=== PATIENT | male | born 1935 | race Caucasian/White ===

== ENCOUNTER 2017-01-16 17:24 | Inpatient (IN) ==
[2017-01-16 18:44] LABS: Basophils % 0.6 % (0.0-0.8); Eosinophils # 0.2 10*3/uL (0.0-0.87); Eosinophils % 3.7 % (0.00-10.9); Hematocrit 45.5 VOL% (42.0-52.0); Hemoglobin 16.4 GM/DL (14.0-18.0); Immature Granulocytes % 0.2 %; Immature Granulocytes Absolute 0.01 #; Lymphocytes % 17.7 % (21.2-54.2); Mean Corpuscular Hemoglobin 35 PG (27-34); Mean Platelet Volume 12.3 FL (9.6-12.0); Monocytes # 0.7 10*3/uL (0.11-0.8); Monocytes % 12.4 % (1.7-12.7); Neutrophils # 3.6 10*3/uL (1.4-7.4); Neutrophils % 65.4 % (38.7-73.9); Platelet Count 202 T/CUMM (130-400); Red Blood Count 4.69 MC/CUMM (3.8-5.5); Red Cell Distribution Width 14.3 % (9.3-17.3); White Blood Count 5.4 T/CUMM (4-12)
[2017-01-16 18:50] LABS: INR 1.8; PT Patient Result 18.9 SECS
[2017-01-16 19:04] LABS: Alanine Aminotransferase 30 U/L (16-61); Albumin 3.8 G/DL (3.4-5.0); Alkaline Phosphatase 116 U/L (45-117); Aspartate Amino Transferase 20 U/L (0-37); Bilirubin,Total < 0.39 MG/DL (0.2-1.0); Blood Urea Nitrogen 21 MG/DL (7-18); Glucose 90 MG/DL (74-106); Osmolality,Calculated 277.7 MOS/KG (273-304); Potassium 4.4 MMOL/L (3.5-5.1); Sodium 138 MMOL/L (136-145); Total Protein 7.3 G/DL (6.4-8.3); Troponin I Only < 0.015 NG/ML (0.00-0.045)
[2017-01-16 19:25] LABS: Apearance,Urine CLEAR (Clear); Bilirubin,Urine Negative (Negative); Blood, Urine Negative (Negative); Glucose,Urine (UA) Negative (Negative); Ketones,Urine Negative (Negative); Mucus,Urine Occasional /LPF (Occasional); Nitrite,Urine Negative (Negative); Protein,Urine Negative; RBC,Urine 5 /HPF (0-4); Urine Color Yellow (Yellow); Urine Specific Gravity 1.014 (1.001-1.035); Urine Urobilinogen < 2.0 EU/DL (0.2-1.0); WBC,Urine 1 /HPF (0-6)
[2017-01-16 19:32] LABS: Barbiturates Screen,Urine Negative (Negative); Benzodiazepines Screen,Urine Negative (Negative); Cannabinoid Screen,Urine Negative (Negative); Opiate Screen,Urine Positive (Negative); Phencyclidine Screen,Urine Negative (Negative)
[2017-01-16] MEDS ORDERED: ONDANSETRON 4 MG/2 ML VIAL IV PRN (21:15)
[2017-01-16] MEDS ORDERED: ACETAMINOPHEN 325 MG TABLET PO PRN (21:15)
[2017-01-16] MEDS ORDERED: DOCUSATE SODIUM 100 MG CAPSULE PO PRN (21:15)
[2017-01-16] MEDS ORDERED: MAGNESIUM SULF RIDER 2 GM in PREMIX 1 EACH IV PRN (21:15)
[2017-01-16] MEDS ORDERED: MAGNESIUM SULF RIDER 4 GM in PREMIX 1 EACH IV PRN (21:15)
[2017-01-16] MEDS ORDERED: ROSUVASTATIN 10 MG TABLET PO SCH (21:30)
[2017-01-16] MEDS ORDERED: ATROPINE 1 MG/1 ML VIAL ONE (21:38)
[2017-01-16] MEDS ORDERED: LORazepam 2 MG/1 ML VIAL ONE (21:47)
[2017-01-16] MEDS ORDERED: MIDAZOLAM 2 MG/2 ML VIAL ONE (22:29)
[2017-01-16] MEDS ORDERED: fentaNYL 100 MCG/2 ML VIAL ONE (22:29)
[2017-01-16] MEDS ORDERED: ceFAZolin 1,000 MG VIAL ONE ×3 (22:32→23:06)
[2017-01-16] MEDS ORDERED: ATROPINE 1 MG/10 ML SYRINGE IV ONE (22:33)
[2017-01-16] MEDS ORDERED: LORazepam 2 MG/1 ML VIAL IV ONE (22:33)
[2017-01-16] MEDS ORDERED: LIDOCAINE 1% 20 ML VIAL ONE (23:06)
[2017-01-16] MEDS ORDERED: TISSUE ADHESIVE 1 EACH APPLICATOR TOP ONE (23:34)
[2017-01-17] MEDS ORDERED: DEXTROSE 50% 25 GM/50 ML VIAL IV PRN (00:28)
[2017-01-17] MEDS ORDERED: GLUCAGON 1 MG VIAL IM PRN (00:28)
[2017-01-17 02:52] LABS: Apearance,Urine CLEAR (Clear); Bilirubin,Urine Negative (Negative); Blood, Urine Moderate mg/dL (Negative); Glucose,Urine (UA) Negative (Negative); Hyaline Casts,Urine 1 /LPF (0-3); Ketones,Urine Negative (Negative); Mucus,Urine Occasional /LPF (Occasional); Nitrite,Urine Negative (Negative); Protein,Urine Negative; RBC,Urine 66 /HPF (0-4); Squamous Epithelial Cell,Urine Occasional /HPF (0-10); Urine Color Yellow (Yellow); Urine Specific Gravity 1.031 (1.001-1.035); Urine Urobilinogen < 2.0 EU/DL (0.2-1.0); WBC,Urine 1 /HPF (0-6)
[2017-01-17] MEDS ORDERED: hydrALAZINE 25 MG TABLET PO PRN (02:54)
[2017-01-17] MEDS: oxyCODONE/ACETAMINOPHEN 5-325 MG TABLET PO PRN ×2 (03:06→18:01)
[2017-01-17 04:41] LABS: Basophils % 0.2 % (0.0-0.8); Eosinophils # 0.2 10*3/uL (0.0-0.87); Eosinophils % 1.9 % (0.00-10.9); Hematocrit 45.1 VOL% (42.0-52.0); Immature Granulocytes % 0.3 %; Immature Granulocytes Absolute 0.03 #; Lymphocytes # 0.8 10*3/uL (1.4-4.0); Lymphocytes % 8.1 % (21.2-54.2); Mean Corpuscular HGB Conc 35.5 GM/DL (32-36); Mean Corpuscular Hemoglobin 35 PG (27-34); Mean Corpuscular Volume 97.2 FL (87-102); Mean Platelet Volume 12.1 FL (9.6-12.0); Monocytes # 0.9 10*3/uL (0.11-0.8); Neutrophils # 7.5 10*3/uL (1.4-7.4); Neutrophils % 79.5 % (38.7-73.9); Platelet Count 214 T/CUMM (130-400); Red Blood Count 4.64 MC/CUMM (3.8-5.5); Red Cell Distribution Width 14.1 % (9.3-17.3); White Blood Count 9.4 T/CUMM (4-12)
[2017-01-17 04:54] LABS: INR 1.8
[2017-01-17 05:40] LABS: Calcium 9.1 MG/DL (8.5-10.1); Magnesium 2.4 MG/DL (1.8-2.4); Osmolality,Calculated 275.7 MOS/KG (273-304); Potassium 4.7 MMOL/L (3.5-5.1); Troponin I Only 0.071 NG/ML (0.00-0.045)
[2017-01-17] MEDS ORDERED: GABAPENTIN 100 MG CAPSULE PO SCH (09:00)
[2017-01-17] MEDS ORDERED: ASPIRIN EC 81 MG TABLET PO SCH (09:00)
[2017-01-17] MEDS ORDERED: PANTOPRAZOLE 40 MG TABLET PO SCH (09:00)
[2017-01-17] MEDS ORDERED: ALLOPURINOL 300 MG TABLET PO SCH (09:00)
[2017-01-17] MEDS ORDERED: CELECOXIB 100 MG CAPSULE PO SCH (09:00)
[2017-01-17] MEDS ORDERED: POLYETHYLENE GLYCOL POWDER 17 GM PACK PO SCH (09:00)
[2017-01-17] MEDS ORDERED: ASPIRIN CHEW 81 MG TABLET PO ONE (09:31)
[2017-01-17] MEDS: METOPROLOL SUCCINATE XL 25 MG TABLET PO SCH (09:37)
[2017-01-17] MEDS: PANTOPRAZOLE 40 MG TABLET PO SCH (09:37)
[2017-01-17] MEDS ORDERED: WARFARIN 7.5 MG TABLET PO SCH (18:00)
[2017-01-18] MEDS: oxyCODONE/ACETAMINOPHEN 5-325 MG TABLET PO PRN (04:27)
[2017-01-18 05:37] LABS: INR 1.9; PT Patient Result 19.8 SECS
[2017-01-18 05:53] LABS: Risk Ratio 4.54; VLDL CHOLESTEROL 22.2 MG/DL
[2017-01-18] MEDS ORDERED: ASPIRIN EC 81 MG TABLET PO SCH (09:00)
[2017-01-18] MEDS: METOPROLOL SUCCINATE XL 25 MG TABLET PO SCH (09:37)
[2017-01-18] MEDS: PANTOPRAZOLE 40 MG TABLET PO SCH (09:37)
[2017-01-18 15:17] VITALS: BP 142/68
[2017-01-20] MEDS ORDERED: WARFARIN 5 MG TABLET PO SCH (18:00)
== END 2017-01-18 16:00 | disposition home or self-care (01) | DRG 244 ==
LOC: N.ED 17:24 → N.EDINP 21:20 → N.CC 21:40 → N.TELES 01-17 14:57
PROVIDERS: ADMIT Internal Medicine Clinical Cardiac Electrophysiology; ATTEND Internal Medicine Clinical Cardiac Electrophysiology

== ENCOUNTER 2018-05-03 13:15 | Observation (INO) ==
[2018-05-03 13:54] LABS: Basophils % 0.5 % (0.0-0.8); Eosinophils # 0.3 10*3/uL (0.0-0.87); Eosinophils % 5.2 % (0.00-10.9); Hematocrit 45.8 VOL% (42.0-52.0); Hemoglobin 15.4 GM/DL (14.0-18.0); Immature Granulocytes % 0.2 %; Immature Granulocytes Absolute 0.01 #; Lymphocytes # 0.9 10*3/uL (1.4-4.0); Lymphocytes % 15.2 % (21.2-54.2); Mean Corpuscular HGB Conc 33.6 GM/DL (32-36); Mean Corpuscular Hemoglobin 34 PG (27-34); Mean Corpuscular Volume 100.7 FL (87-102); Mean Platelet Volume 12.1 FL (9.6-12.0); Monocytes # 0.7 10*3/uL (0.11-0.8); Monocytes % 12.8 % (1.7-12.7); Neutrophils # 3.7 10*3/uL (1.4-7.4); Neutrophils % 66.1 % (38.7-73.9); Platelet Count 176 T/CUMM (130-400); Red Blood Count 4.55 MC/CUMM (3.8-5.5); Red Cell Distribution Width 14.6 % (9.3-17.3); White Blood Count 5.6 T/CUMM (4-12)
[2018-05-03 14:06] LABS: PT Patient Result 110.4 SECS
[2018-05-03 14:07] LABS: INR 10.4
[2018-05-03 14:18] LABS: Albumin 3.8 G/DL (3.4-5.0); Bilirubin,Total 0.4 MG/DL (0.2-1.0); Calcium 9.1 MG/DL (8.5-10.1); Osmolality,Calculated 282.4 MOS/KG (273-304); Potassium 4.6 MMOL/L (3.5-5.1); Total Protein 7.3 G/DL (6.4-8.3)
[2018-05-03] MEDS ORDERED: PHYTONADIONE 5 MG/5 ML ORAL.SYR PO ONE (15:28)
[2018-05-03] MEDS ORDERED: SODIUM CHLORIDE 0.9% 1,000 ML IV SCH (16:33)
[2018-05-03] MEDS ORDERED: ACETAMINOPHEN 325 MG TABLET PO PRN (16:33)
[2018-05-03] MEDS ORDERED: ONDANSETRON 4 MG/2 ML VIAL IV PRN (16:33)
[2018-05-03] MEDS: DOCUSATE SODIUM 100 MG CAPSULE PO SCH (20:59)
[2018-05-04 05:13] LABS: Basophils % 0.5 % (0.0-0.8); Eosinophils # 0.3 10*3/uL (0.0-0.87); Eosinophils % 4.7 % (0.00-10.9); Hemoglobin 14.4 GM/DL (14.0-18.0); Immature Granulocytes % 0.2 %; Immature Granulocytes Absolute 0.01 #; Lymphocytes # 1.1 10*3/uL (1.4-4.0); Lymphocytes % 19.2 % (21.2-54.2); Mean Corpuscular HGB Conc 33.5 GM/DL (32-36); Mean Corpuscular Hemoglobin 34 PG (27-34); Mean Corpuscular Volume 101.2 FL (87-102); Mean Platelet Volume 12.7 FL (9.6-12.0); Monocytes # 0.7 10*3/uL (0.11-0.8); Monocytes % 12.9 % (1.7-12.7); Neutrophils # 3.5 10*3/uL (1.4-7.4); Neutrophils % 62.5 % (38.7-73.9); Platelet Count 163 T/CUMM (130-400); Red Blood Count 4.25 MC/CUMM (3.8-5.5); Red Cell Distribution Width 14.5 % (9.3-17.3); White Blood Count 5.5 T/CUMM (4-12)
[2018-05-04 05:30] LABS: INR 3.5
[2018-05-04 05:31] LABS: PT Patient Result 37.2 SECS
[2018-05-04 05:35] LABS: Albumin 3.3 G/DL (3.4-5.0); Bilirubin,Total 1.1 MG/DL (0.2-1.0); Osmolality,Calculated 280.4 MOS/KG (273-304); Potassium 4.2 MMOL/L (3.5-5.1); Total Protein 6.4 G/DL (6.4-8.3)
[2018-05-04] MEDS: DOCUSATE SODIUM 100 MG CAPSULE PO SCH (08:16)
[2018-05-04] MEDS ORDERED: PANTOPRAZOLE 40 MG TABLET PO SCH (09:00)
[2018-05-04 09:06] VITALS: BP 154/71
== END 2018-05-04 09:59 | disposition home or self-care (01) ==
LOC: N.EDINP 13:15 → N.ED 13:15 → N.4E 16:17
PROVIDERS: ADMIT Family Medicine; ATTEND Family Medicine

== ENCOUNTER 2018-08-15 13:59 | Inpatient (IN) ==
[2018-08-15 14:35] LABS: Basophils % 0.2 % (0.0-0.8); Eosinophils % 0.2 % (0.00-10.9); Hemoglobin 13.8 GM/DL (14.0-18.0); Immature Granulocytes % 0.5 %; Immature Granulocytes Absolute 0.06 #; Lymphocytes # 0.5 10*3/uL (1.4-4.0); Lymphocytes % 4.2 % (21.2-54.2); Mean Corpuscular HGB Conc 33.7 GM/DL (32-36); Mean Corpuscular Volume 101.2 FL (87-102); Mean Platelet Volume 11.8 FL (9.6-12.0); Monocytes % 13.6 % (1.7-12.7); Neutrophils % 81.3 % (38.7-73.9); Platelet Count 171 T/CUMM (130-400); Red Blood Count 4.05 MC/CUMM (3.8-5.5); Red Cell Distribution Width 13.9 % (9.3-17.3); White Blood Count 11.6 T/CUMM (4-12)
[2018-08-15 14:55] LABS: Band Neutrophils 1 % (0-10); Lymphocytes 2 % (20-55); Segmented Neutrophils 89 % (50-85); Total Cells Counted 100
[2018-08-15 14:56] LABS: Platelet Estimate Adequate
[2018-08-15 15:00] LABS: Bilirubin,Total 1.3 MG/DL (0.2-1.0); Osmolality,Calculated 272.1 MOS/KG (273-304); Total Protein 6.6 G/DL (6.4-8.3)
[2018-08-15] MEDS ORDERED: cefTRIAXone 1,000 MG in SODIUM CHLORIDE 0.9% 100 ML IV STA (15:05)
[2018-08-15] MEDS ORDERED: cefTRIAXone 1,000 MG in SYRINGE 1 EACH IV STA (15:09)
[2018-08-15] MEDS ORDERED: ONDANSETRON 4 MG/2 ML VIAL IV PRN (15:17)
[2018-08-15] MEDS ORDERED: ACETAMINOPHEN 325 MG TABLET PO PRN (15:17)
[2018-08-15] MEDS ORDERED: SODIUM CHLORIDE 0.9% 100 ML IV ONE (15:18)
[2018-08-15] MEDS ORDERED: cefTRIAXone 1,000 MG in SYRINGE 1 EACH IV SCH (15:30)
[2018-08-15] MEDS ORDERED: SODIUM CHLORIDE 0.45% 1,000 ML IV SCH (15:30)
[2018-08-15 16:33] LABS: INR 1.9
[2018-08-15 16:51] LABS: Apearance,Urine CLEAR (Clear); Bilirubin,Urine Negative (Negative); Blood, Urine Small mg/dL (Negative); Glucose,Urine (UA) Negative (Negative); Ketones,Urine Negative (Negative); Mucus,Urine Occasional /LPF (Occasional); Nitrite,Urine Negative (Negative); Protein,Urine 30 MG/DL; RBC,Urine 9 /HPF (0-4); Squamous Epithelial Cell,Urine Occasional /HPF (0-10); Urine Color Yellow (Yellow); Urine Specific Gravity 1.021 (1.001-1.035); WBC,Urine 4 /HPF (0-6)
[2018-08-15] MEDS: WARFARIN 5 MG TABLET PO SCH (17:34)
[2018-08-15] MEDS: traMADol 50 MG TABLET PO SCH (21:25)
[2018-08-15] MEDS: DOCUSATE SODIUM 100 MG CAPSULE PO SCH (21:25)
[2018-08-16] MEDS: ACETAMINOPHEN 325 MG TABLET PO PRN ×3 (05:08→20:20)
[2018-08-16] MEDS: SODIUM CHLORIDE 0.45% 1,000 ML IV SCH ×2 (05:14→20:21)
[2018-08-16 05:28] LABS: Basophils % 0.2 % (0.0-0.8); Eosinophils # 0.1 10*3/uL (0.0-0.87); Eosinophils % 0.6 % (0.00-10.9); Hematocrit 39.3 VOL% (42.0-52.0); Hemoglobin 13.5 GM/DL (14.0-18.0); Immature Granulocytes % 0.6 %; Immature Granulocytes Absolute 0.07 #; Lymphocytes # 0.4 10*3/uL (1.4-4.0); Lymphocytes % 3.4 % (21.2-54.2); Mean Corpuscular HGB Conc 34.4 GM/DL (32-36); Mean Corpuscular Volume 100.5 FL (87-102); Mean Platelet Volume 11.8 FL (9.6-12.0); Monocytes % 13.2 % (1.7-12.7); Platelet Count 168 T/CUMM (130-400); Red Blood Count 3.91 MC/CUMM (3.8-5.5); Red Cell Distribution Width 13.9 % (9.3-17.3); White Blood Count 12.5 T/CUMM (4-12)
[2018-08-16 05:35] LABS: INR 1.8; PT Patient Result 19.3 SECS
[2018-08-16 05:49] LABS: Band Neutrophils 1 % (0-10); Hypochromasia 1+; Lymphocytes 5 % (20-55); Platelet Estimate Adequate; Segmented Neutrophils 85 % (50-85); Total Cells Counted 100
[2018-08-16] MEDS: ALLOPURINOL 300 MG TABLET PO SCH (09:39)
[2018-08-16] MEDS: GABAPENTIN 100 MG CAPSULE PO SCH (09:39)
[2018-08-16] MEDS: PANTOPRAZOLE 40 MG TABLET PO SCH (09:39)
[2018-08-16] MEDS: METOPROLOL SUCCINATE XL 25 MG TABLET PO SCH (09:39)
[2018-08-16] MEDS: ROSUVASTATIN 10 MG TABLET PO SCH (09:39)
[2018-08-16] MEDS: ASPIRIN EC 81 MG TABLET PO SCH (09:39)
[2018-08-16] MEDS: cefTRIAXone 1,000 MG in SYRINGE 1 EACH IV SCH (09:39)
[2018-08-16] MEDS: DOCUSATE SODIUM 100 MG CAPSULE PO SCH ×2 (09:40→20:21)
[2018-08-16] MEDS: traMADol 50 MG TABLET PO SCH ×2 (09:40→20:21)
[2018-08-16] MEDS: WARFARIN 7.5 MG TABLET PO SCH (18:02)
[2018-08-17] MEDS: ACETAMINOPHEN 325 MG TABLET PO PRN ×3 (05:20→22:15)
[2018-08-17 08:14] LABS: Basophils % 0.2 % (0.0-0.8); Eosinophils # 0.1 10*3/uL (0.0-0.87); Eosinophils % 0.7 % (0.00-10.9); Hematocrit 41.7 VOL% (42.0-52.0); Hemoglobin 13.9 GM/DL (14.0-18.0); Immature Granulocytes % 0.7 %; Immature Granulocytes Absolute 0.09 #; Lymphocytes # 0.3 10*3/uL (1.4-4.0); Lymphocytes % 2.4 % (21.2-54.2); Mean Corpuscular HGB Conc 33.3 GM/DL (32-36); Mean Corpuscular Volume 100.5 FL (87-102); Mean Platelet Volume 11.1 FL (9.6-12.0); Monocytes % 8.5 % (1.7-12.7); Neutrophils % 87.5 % (38.7-73.9); Platelet Count 184 T/CUMM (130-400); Red Blood Count 4.15 MC/CUMM (3.8-5.5)
[2018-08-17 08:34] LABS: Band Neutrophils 4 % (0-10); Hypochromasia Slight; Lymphocytes 2 % (20-55); Platelet Estimate Adequate; Segmented Neutrophils 86 % (50-85); Total Cells Counted 100
[2018-08-17 08:39] LABS: Calcium 8.9 MG/DL (8.5-10.1); Osmolality,Calculated 271.2 MOS/KG (273-304)
[2018-08-17] MEDS: cefTRIAXone 1,000 MG in SYRINGE 1 EACH IV SCH (09:02)
[2018-08-17] MEDS: metroNIDAZOLE INJ 500 MG in PREMIX 1 EACH IV SCH ×2 (09:03→18:16)
[2018-08-17] MEDS: SODIUM CHLORIDE 0.45% 1,000 ML IV SCH (09:05)
[2018-08-17] MEDS: ALLOPURINOL 300 MG TABLET PO SCH (09:07)
[2018-08-17] MEDS: traMADol 50 MG TABLET PO SCH ×2 (09:07→21:21)
[2018-08-17] MEDS: OXYBUTYNIN XL 5 MG TABLET PO SCH (09:07)
[2018-08-17] MEDS: DOCUSATE SODIUM 100 MG CAPSULE PO SCH ×2 (09:07→21:21)
[2018-08-17] MEDS: ASPIRIN EC 81 MG TABLET PO SCH (09:07)
[2018-08-17] MEDS: METOPROLOL SUCCINATE XL 25 MG TABLET PO SCH (09:07)
[2018-08-17] MEDS: PANTOPRAZOLE 40 MG TABLET PO SCH (09:08)
[2018-08-17] MEDS: GABAPENTIN 100 MG CAPSULE PO SCH (09:08)
[2018-08-17] MEDS: ALBUTEROL 2.5 MG/3 ML NEB RESP TX SCH ×4 (10:42→23:34)
[2018-08-17] MEDS ORDERED: ACETAMINOPHEN 500 MG TABLET PO ONE (14:08)
[2018-08-17] MEDS: LEVOFLOXACIN INJ 500 MG in PREMIX 1 EACH IV SCH (14:14)
[2018-08-17] MEDS: WARFARIN 5 MG TABLET PO SCH (18:15)
[2018-08-18] MEDS: SODIUM CHLORIDE 0.45% 1,000 ML IV SCH ×2 (01:35→17:02)
[2018-08-18] MEDS: metroNIDAZOLE INJ 500 MG in PREMIX 1 EACH IV SCH ×3 (01:36→18:35)
[2018-08-18] MEDS: ALBUTEROL 2.5 MG/3 ML NEB RESP TX SCH ×5 (02:15→19:10)
[2018-08-18] MEDS: ACETAMINOPHEN 325 MG TABLET PO PRN ×4 (02:58→18:36)
[2018-08-18 05:41] LABS: INR 1.9; PT Patient Result 20.8 SECS
[2018-08-18] MEDS: ASPIRIN EC 81 MG TABLET PO SCH (08:32)
[2018-08-18] MEDS: ALLOPURINOL 300 MG TABLET PO SCH (08:32)
[2018-08-18] MEDS: METOPROLOL SUCCINATE XL 25 MG TABLET PO SCH (08:32)
[2018-08-18] MEDS: ROSUVASTATIN 10 MG TABLET PO SCH (08:32)
[2018-08-18] MEDS: traMADol 50 MG TABLET PO SCH ×2 (08:33→21:28)
[2018-08-18] MEDS: GABAPENTIN 100 MG CAPSULE PO SCH (08:34)
[2018-08-18] MEDS: OXYBUTYNIN XL 5 MG TABLET PO SCH (08:34)
[2018-08-18] MEDS: PANTOPRAZOLE 40 MG TABLET PO SCH (08:34)
[2018-08-18] MEDS: DOCUSATE SODIUM 100 MG CAPSULE PO SCH ×2 (08:34→21:27)
[2018-08-18] MEDS: LEVOFLOXACIN INJ 500 MG in PREMIX 1 EACH IV SCH (14:27)
[2018-08-18] MEDS: WARFARIN 5 MG TABLET PO SCH (18:37)
[2018-08-19] MEDS: ALBUTEROL 2.5 MG/3 ML NEB RESP TX SCH ×6 (00:09→21:06)
[2018-08-19] MEDS: metroNIDAZOLE INJ 500 MG in PREMIX 1 EACH IV SCH ×3 (00:57→17:13)
[2018-08-19 05:54] LABS: PT Patient Result 21.6 SECS
[2018-08-19] MEDS: ACETAMINOPHEN 325 MG TABLET PO PRN (06:12)
[2018-08-19] MEDS ORDERED: OXYBUTYNIN XL 10 MG TABLET PO SCH (09:00)
[2018-08-19] MEDS: ALLOPURINOL 300 MG TABLET PO SCH (09:11)
[2018-08-19] MEDS: GABAPENTIN 100 MG CAPSULE PO SCH (09:11)
[2018-08-19] MEDS: ASPIRIN EC 81 MG TABLET PO SCH (09:11)
[2018-08-19] MEDS: METOPROLOL SUCCINATE XL 25 MG TABLET PO SCH (09:11)
[2018-08-19] MEDS: OXYBUTYNIN XL 5 MG TABLET PO SCH (09:11)
[2018-08-19] MEDS: PANTOPRAZOLE 40 MG TABLET PO SCH (09:11)
[2018-08-19] MEDS: traMADol 50 MG TABLET PO SCH ×2 (09:11→20:38)
[2018-08-19] MEDS: DOCUSATE SODIUM 100 MG CAPSULE PO SCH ×2 (09:11→20:38)
[2018-08-19] MEDS: SODIUM CHLORIDE 0.45% 1,000 ML IV SCH ×2 (09:13→23:44)
[2018-08-19] MEDS: LEVOFLOXACIN INJ 500 MG in PREMIX 1 EACH IV SCH (14:31)
[2018-08-19] MEDS: cefTRIAXone 1,000 MG in SYRINGE 1 EACH IV SCH (14:31)
[2018-08-19] MEDS: WARFARIN 5 MG TABLET PO SCH (17:13)
[2018-08-20] MEDS: metroNIDAZOLE INJ 500 MG in PREMIX 1 EACH IV SCH ×3 (00:36→17:20)
[2018-08-20] MEDS: ALBUTEROL 2.5 MG/3 ML NEB RESP TX SCH ×7 (03:40→23:25)
[2018-08-20] MEDS: ROSUVASTATIN 10 MG TABLET PO SCH (09:30)
[2018-08-20] MEDS: METOPROLOL SUCCINATE XL 25 MG TABLET PO SCH (09:30)
[2018-08-20] MEDS: ALLOPURINOL 300 MG TABLET PO SCH (09:30)
[2018-08-20] MEDS: OXYBUTYNIN XL 5 MG TABLET PO SCH (09:30)
[2018-08-20] MEDS: GABAPENTIN 100 MG CAPSULE PO SCH (09:30)
[2018-08-20] MEDS: traMADol 50 MG TABLET PO SCH ×2 (09:30→20:18)
[2018-08-20] MEDS: DOCUSATE SODIUM 100 MG CAPSULE PO SCH ×2 (09:30→20:18)
[2018-08-20] MEDS: cefTRIAXone 1,000 MG in SYRINGE 1 EACH IV SCH (09:31)
[2018-08-20] MEDS: PANTOPRAZOLE 40 MG TABLET PO SCH (09:31)
[2018-08-20] MEDS: ASPIRIN EC 81 MG TABLET PO SCH (09:31)
[2018-08-20] MEDS: SODIUM CHLORIDE 0.45% 1,000 ML IV SCH (15:41)
[2018-08-20] MEDS: LEVOFLOXACIN INJ 500 MG in PREMIX 1 EACH IV SCH (16:13)
[2018-08-20] MEDS: WARFARIN 7.5 MG TABLET PO SCH (17:20)
[2018-08-21] MEDS: metroNIDAZOLE INJ 500 MG in PREMIX 1 EACH IV SCH ×3 (00:56→17:24)
[2018-08-21] MEDS: ALBUTEROL 2.5 MG/3 ML NEB RESP TX SCH ×6 (02:40→23:15)
[2018-08-21 04:12] LABS: INR 3.2
[2018-08-21 04:14] LABS: PT Patient Result 34.5 SECS
[2018-08-21] MEDS: ASPIRIN EC 81 MG TABLET PO SCH (09:54)
[2018-08-21] MEDS: ALLOPURINOL 300 MG TABLET PO SCH (09:54)
[2018-08-21] MEDS: PANTOPRAZOLE 40 MG TABLET PO SCH (09:54)
[2018-08-21] MEDS: GABAPENTIN 100 MG CAPSULE PO SCH (09:54)
[2018-08-21] MEDS: OXYBUTYNIN XL 5 MG TABLET PO SCH (09:54)
[2018-08-21] MEDS: METOPROLOL SUCCINATE XL 25 MG TABLET PO SCH (09:54)
[2018-08-21] MEDS: DOCUSATE SODIUM 100 MG CAPSULE PO SCH ×2 (09:54→20:15)
[2018-08-21] MEDS: traMADol 50 MG TABLET PO SCH ×2 (09:55→20:14)
[2018-08-21] MEDS: cefTRIAXone 1,000 MG in SYRINGE 1 EACH IV SCH (09:55)
[2018-08-21] MEDS: LEVOFLOXACIN INJ 500 MG in PREMIX 1 EACH IV SCH (15:49)
[2018-08-21] MEDS: SODIUM CHLORIDE 0.45% 1,000 ML IV SCH (15:49)
[2018-08-21] MEDS: WARFARIN 5 MG TABLET PO SCH (17:24)
[2018-08-22] MEDS: metroNIDAZOLE INJ 500 MG in PREMIX 1 EACH IV SCH ×3 (01:00→17:37)
[2018-08-22] MEDS: ALBUTEROL 2.5 MG/3 ML NEB RESP TX SCH ×6 (02:10→23:09)
[2018-08-22 02:27] LABS: Basophils % 0.3 % (0.0-0.8); Eosinophils # 0.3 10*3/uL (0.0-0.87); Eosinophils % 3.6 % (0.00-10.9); Hematocrit 36.4 VOL% (42.0-52.0); Hemoglobin 12.5 GM/DL (14.0-18.0); Immature Granulocytes % 2.1 %; Immature Granulocytes Absolute 0.19 #; Lymphocytes # 0.7 10*3/uL (1.4-4.0); Lymphocytes % 7.3 % (21.2-54.2); Mean Corpuscular HGB Conc 34.3 GM/DL (32-36); Mean Corpuscular Volume 98.4 FL (87-102); Mean Platelet Volume 10.6 FL (9.6-12.0); Neutrophils % 76.7 % (38.7-73.9); Platelet Count 325 T/CUMM (130-400); Red Cell Distribution Width 14.8 % (9.3-17.3); White Blood Count 9.1 T/CUMM (4-12)
[2018-08-22 02:51] LABS: Calcium 8.6 MG/DL (8.5-10.1); Osmolality,Calculated 282.3 MOS/KG (273-304)
[2018-08-22] MEDS: SODIUM CHLORIDE 0.45% 1,000 ML IV SCH ×2 (03:24→18:00)
[2018-08-22 07:44] LABS: INR 4.4; PT Patient Result 47.5 SECS
[2018-08-22] MEDS: cefTRIAXone 1,000 MG in SYRINGE 1 EACH IV SCH (09:01)
[2018-08-22] MEDS: ASPIRIN EC 81 MG TABLET PO SCH (09:02)
[2018-08-22] MEDS: ALLOPURINOL 300 MG TABLET PO SCH (09:02)
[2018-08-22] MEDS: METOPROLOL SUCCINATE XL 25 MG TABLET PO SCH (09:02)
[2018-08-22] MEDS: traMADol 50 MG TABLET PO SCH ×2 (09:02→20:18)
[2018-08-22] MEDS: DOCUSATE SODIUM 100 MG CAPSULE PO SCH ×2 (09:03→20:18)
[2018-08-22] MEDS: OXYBUTYNIN XL 5 MG TABLET PO SCH (09:03)
[2018-08-22] MEDS: GABAPENTIN 100 MG CAPSULE PO SCH (09:03)
[2018-08-22] MEDS: PANTOPRAZOLE 40 MG TABLET PO SCH (09:03)
[2018-08-22] MEDS: LEVOFLOXACIN INJ 500 MG in PREMIX 1 EACH IV SCH (16:14)
[2018-08-23] MEDS: metroNIDAZOLE INJ 500 MG in PREMIX 1 EACH IV SCH ×3 (01:52→16:32)
[2018-08-23] MEDS: ALBUTEROL 2.5 MG/3 ML NEB RESP TX SCH ×6 (03:11→23:48)
[2018-08-23] MEDS: SODIUM CHLORIDE 0.45% 1,000 ML IV SCH (08:27)
[2018-08-23] MEDS: ASPIRIN EC 81 MG TABLET PO SCH (08:55)
[2018-08-23] MEDS: cefTRIAXone 1,000 MG in SYRINGE 1 EACH IV SCH (08:55)
[2018-08-23] MEDS: OXYBUTYNIN XL 5 MG TABLET PO SCH (08:55)
[2018-08-23] MEDS: ROSUVASTATIN 10 MG TABLET PO SCH (08:55)
[2018-08-23] MEDS: DOCUSATE SODIUM 100 MG CAPSULE PO SCH ×2 (08:55→20:52)
[2018-08-23] MEDS: METOPROLOL SUCCINATE XL 25 MG TABLET PO SCH (08:55)
[2018-08-23] MEDS: PANTOPRAZOLE 40 MG TABLET PO SCH (08:55)
[2018-08-23] MEDS: GABAPENTIN 100 MG CAPSULE PO SCH (08:55)
[2018-08-23] MEDS: ALLOPURINOL 300 MG TABLET PO SCH (08:56)
[2018-08-23] MEDS: LEVOFLOXACIN INJ 500 MG in PREMIX 1 EACH IV SCH (14:14)
[2018-08-24] MEDS: metroNIDAZOLE INJ 500 MG in PREMIX 1 EACH IV SCH ×2 (00:13→09:10)
[2018-08-24] MEDS: ALBUTEROL 2.5 MG/3 ML NEB RESP TX SCH ×3 (03:56→12:20)
[2018-08-24] MEDS: SODIUM CHLORIDE 0.45% 1,000 ML IV SCH (05:39)
[2018-08-24 08:21] LABS: INR 2.7
[2018-08-24 08:28] LABS: PT Patient Result 28.9 SECS
[2018-08-24] MEDS: OXYBUTYNIN XL 5 MG TABLET PO SCH (09:09)
[2018-08-24] MEDS: DOCUSATE SODIUM 100 MG CAPSULE PO SCH (09:09)
[2018-08-24] MEDS: METOPROLOL SUCCINATE XL 25 MG TABLET PO SCH (09:09)
[2018-08-24] MEDS: ASPIRIN EC 81 MG TABLET PO SCH (09:09)
[2018-08-24] MEDS: GABAPENTIN 100 MG CAPSULE PO SCH (09:09)
[2018-08-24] MEDS: PANTOPRAZOLE 40 MG TABLET PO SCH (09:09)
[2018-08-24] MEDS: cefTRIAXone 1,000 MG in SYRINGE 1 EACH IV SCH (09:09)
[2018-08-24] MEDS: ALLOPURINOL 300 MG TABLET PO SCH (09:09)
[2018-08-24 10:14] LABS: Apearance,Urine CLEAR (Clear); Bilirubin,Urine Negative (Negative); Blood, Urine Negative (Negative); Glucose,Urine (UA) Negative (Negative); Ketones,Urine Negative (Negative); Mucus,Urine Occasional /LPF (Occasional); Nitrite,Urine Negative (Negative); Protein,Urine Negative; RBC,Urine 1 /HPF (0-4); Urine Color Yellow (Yellow); Urine Specific Gravity 1.011 (1.001-1.035); Urine Urobilinogen < 2.0 EU/DL (0.2-1.0); WBC,Urine <1 /HPF (0-6)
[2018-08-24 11:45] VITALS: BP 157/82
== END 2018-08-24 15:09 | disposition swing bed (61) | DRG 689 ==
LOC: EDUNIT# → EDBD → N.ED 13:59 → N.EDINP 15:17 → N.2E 15:52
PROVIDERS: ADMIT Family Medicine; ATTEND Family Medicine

== ENCOUNTER 2018-09-24 20:56 | Inpatient (IN) ==
[2018-09-24] MEDS ORDERED: ONDANSETRON 4 MG/2 ML VIAL IV STA (22:00)
[2018-09-24] MEDS ORDERED: fentaNYL 100 MCG/2 ML VIAL IV STA (22:00)
[2018-09-24 22:19] LABS: Basophils % 0.4 % (0.0-0.8); Eosinophils # 0.3 10*3/uL (0.0-0.87); Hematocrit 39.3 VOL% (42.0-52.0); Hemoglobin 13.4 GM/DL (14.0-18.0); Immature Granulocytes % 0.1 %; Immature Granulocytes Absolute 0.01 #; Lymphocytes # 0.9 10*3/uL (1.4-4.0); Lymphocytes % 11.5 % (21.2-54.2); Mean Corpuscular HGB Conc 34.1 GM/DL (32-36); Mean Corpuscular Volume 98.7 FL (87-102); Monocytes % 11.2 % (1.7-12.7); Neutrophils % 72.8 % (38.7-73.9); Platelet Count 186 T/CUMM (130-400); Red Blood Count 3.98 MC/CUMM (3.8-5.5); Red Cell Distribution Width 14.3 % (9.3-17.3); White Blood Count 7.8 T/CUMM (4-12)
[2018-09-24 22:29] LABS: Apearance,Urine CLEAR (Clear); Bilirubin,Urine Negative (Negative); Blood, Urine Moderate mg/dL (Negative); Glucose,Urine (UA) Negative (Negative); Hyaline Casts,Urine 1 /LPF (0-3); Ketones,Urine Negative (Negative); Mucus,Urine Occasional /LPF (Occasional); Nitrite,Urine Negative (Negative); Protein,Urine Negative; RBC,Urine 57 /HPF (0-4); Urine Color Straw (Yellow); Urine Specific Gravity 1.012 (1.001-1.035); Urine Urobilinogen < 2.0 EU/DL (0.2-1.0); WBC,Urine <1 /HPF (0-6)
[2018-09-24 22:40] LABS: Alanine Aminotransferase 23 U/L (16-61); Alkaline Phosphatase 105 U/L (45-117); Amylase 29 U/L (25-115); Aspartate Amino Transferase 20 U/L (0-37); Blood Urea Nitrogen 31 MG/DL (7-18); Calcium 9.4 MG/DL (8.5-10.1); Glucose 106 MG/DL (74-106); Osmolality,Calculated 283.5 MOS/KG (273-304); Total Protein 6.9 G/DL (6.4-8.3); Troponin I < 0.015 NG/ML (0.00-0.045)
[2018-09-25] MEDS ORDERED: cefTRIAXone 1,000 MG VIAL ONE (02:49)
[2018-09-25] MEDS: cefTRIAXone 2,000 MG in SYRINGE 1 EACH IV SCH (02:55)
[2018-09-25] MEDS ORDERED: HYDROmorphone 2 MG/1 ML VIAL IV PRN (03:24)
[2018-09-25] MEDS: ONDANSETRON 4 MG/2 ML VIAL IV PRN ×2 (04:15→08:29)
[2018-09-25] MEDS: HYDROmorphone 2 MG/1 ML VIAL IV PRN (04:15)
[2018-09-25 05:30] LABS: INR 1.8; PT Patient Result 19.5 SECS
[2018-09-25] MEDS ORDERED: ALBUTEROL/IPRATROPIUM 3 ML NEB RESP TX SCH (07:00)
[2018-09-25] MEDS ORDERED: ALBUTEROL/IPRATROPIUM 3 ML NEB RESP TX PRN (07:17)
[2018-09-25] MEDS: SODIUM CHLORIDE 0.9% 1,000 ML IV SCH ×2 (07:31→17:28)
[2018-09-25] MEDS: POLYETHYLENE GLYCOL POWDER 17 GM PACK PO SCH (08:32)
[2018-09-25] MEDS: traMADol 50 MG TABLET PO SCH ×2 (09:26→21:06)
[2018-09-25] MEDS: ASPIRIN EC 81 MG TABLET PO SCH (09:26)
[2018-09-25] MEDS: GABAPENTIN 100 MG CAPSULE PO SCH (09:27)
[2018-09-25] MEDS: PANTOPRAZOLE 40 MG TABLET PO SCH (09:27)
[2018-09-25] MEDS: ALLOPURINOL 300 MG TABLET PO SCH (09:27)
[2018-09-25] MEDS: METOPROLOL SUCCINATE XL 25 MG TABLET PO SCH (09:27)
[2018-09-25] MEDS: WARFARIN 5 MG TABLET PO SCH (17:28)
[2018-09-25] MEDS: ROSUVASTATIN 10 MG TABLET PO SCH (21:06)
[2018-09-25] MEDS: TAMSULOSIN 0.4 MG CAPSULE PO SCH (21:06)
[2018-09-26] MEDS: cefTRIAXone 2,000 MG in SYRINGE 1 EACH IV SCH (02:50)
[2018-09-26] MEDS: SODIUM CHLORIDE 0.9% 1,000 ML IV SCH ×2 (03:29→15:53)
[2018-09-26 05:02] LABS: Calcium 8.6 MG/DL (8.5-10.1)
[2018-09-26 05:03] LABS: Basophils % 0.8 % (0.0-0.8); Eosinophils # 0.4 10*3/uL (0.0-0.87); Eosinophils % 8.6 % (0.00-10.9); Hematocrit 37.3 VOL% (42.0-52.0); Hemoglobin 12.3 GM/DL (14.0-18.0); Immature Granulocytes % 0.2 %; Immature Granulocytes Absolute 0.01 #; Lymphocytes # 0.7 10*3/uL (1.4-4.0); Lymphocytes % 13.6 % (21.2-54.2); Mean Corpuscular Volume 101.6 FL (87-102); Mean Platelet Volume 12.3 FL (9.6-12.0); Monocytes % 12.2 % (1.7-12.7); Neutrophils % 64.6 % (38.7-73.9); Platelet Count 162 T/CUMM (130-400); Red Blood Count 3.67 MC/CUMM (3.8-5.5); Red Cell Distribution Width 14.6 % (9.3-17.3)
[2018-09-26] MEDS: ALLOPURINOL 300 MG TABLET PO SCH (09:28)
[2018-09-26] MEDS: METOPROLOL SUCCINATE XL 25 MG TABLET PO SCH (09:28)
[2018-09-26] MEDS: GABAPENTIN 100 MG CAPSULE PO SCH (09:28)
[2018-09-26] MEDS: ASPIRIN EC 81 MG TABLET PO SCH (09:28)
[2018-09-26] MEDS: traMADol 50 MG TABLET PO SCH ×2 (09:28→20:41)
[2018-09-26] MEDS: PANTOPRAZOLE 40 MG TABLET PO SCH (09:29)
[2018-09-26] MEDS: POLYETHYLENE GLYCOL POWDER 17 GM PACK PO SCH (09:29)
[2018-09-26] MEDS: ROSUVASTATIN 10 MG TABLET PO SCH (20:40)
[2018-09-26] MEDS: TAMSULOSIN 0.4 MG CAPSULE PO SCH (20:41)
[2018-09-27] MEDS: SODIUM CHLORIDE 0.9% 1,000 ML IV SCH ×4 (00:19→21:59)
[2018-09-27] MEDS: cefTRIAXone 2,000 MG in SYRINGE 1 EACH IV SCH (03:23)
[2018-09-27 04:36] LABS: INR 1.7; PT Patient Result 18.7 SECS
[2018-09-27] MEDS ORDERED: cefTRIAXone 1,000 MG in SYRINGE 1 EACH IV SCH (07:30)
[2018-09-27] MEDS: ALLOPURINOL 300 MG TABLET PO SCH (08:39)
[2018-09-27] MEDS: ASPIRIN EC 81 MG TABLET PO SCH (08:39)
[2018-09-27] MEDS: ROSUVASTATIN 10 MG TABLET PO SCH ×2 (08:39→21:31)
[2018-09-27] MEDS: METOPROLOL SUCCINATE XL 25 MG TABLET PO SCH (08:39)
[2018-09-27] MEDS: traMADol 50 MG TABLET PO SCH ×2 (08:40→21:31)
[2018-09-27] MEDS: GABAPENTIN 100 MG CAPSULE PO SCH (08:41)
[2018-09-27] MEDS: PANTOPRAZOLE 40 MG TABLET PO SCH (08:42)
[2018-09-27] MEDS: POLYETHYLENE GLYCOL POWDER 17 GM PACK PO SCH (11:32)
[2018-09-27] MEDS ORDERED: cefTRIAXone 1,000 MG in SYRINGE 1 EACH IV ONE (14:03)
[2018-09-27] MEDS: TAMSULOSIN 0.4 MG CAPSULE PO SCH (21:31)
[2018-09-28 03:43] LABS: Basophils % 0.5 % (0.0-0.8); Eosinophils # 0.4 10*3/uL (0.0-0.87); Hematocrit 36.1 VOL% (42.0-52.0); Immature Granulocytes % 0.2 %; Immature Granulocytes Absolute 0.01 #; Lymphocytes # 0.8 10*3/uL (1.4-4.0); Lymphocytes % 13.6 % (21.2-54.2); Mean Corpuscular HGB Conc 33.2 GM/DL (32-36); Mean Corpuscular Volume 100.6 FL (87-102); Mean Platelet Volume 12.4 FL (9.6-12.0); Monocytes % 13.4 % (1.7-12.7); Neutrophils % 65.3 % (38.7-73.9); Platelet Count 175 T/CUMM (130-400); Red Blood Count 3.59 MC/CUMM (3.8-5.5); Red Cell Distribution Width 14.3 % (9.3-17.3); White Blood Count 5.7 T/CUMM (4-12)
[2018-09-28 03:46] LABS: INR 1.3; PT Patient Result 14.5 SECS; Partial Thromboplastin Time 30.2 SECS (0-40)
[2018-09-28 04:00] LABS: Calcium 8.9 MG/DL (8.5-10.1)
[2018-09-28] MEDS: SODIUM CHLORIDE 0.9% 1,000 ML IV SCH ×2 (06:35→19:23)
[2018-09-28] MEDS ORDERED: cefTRIAXone 1,000 MG in SYRINGE 1 EACH IV ONE (07:30)
[2018-09-28] MEDS: GABAPENTIN 100 MG CAPSULE PO SCH (09:15)
[2018-09-28] MEDS: ASPIRIN EC 81 MG TABLET PO SCH (09:16)
[2018-09-28] MEDS: METOPROLOL SUCCINATE XL 25 MG TABLET PO SCH (09:16)
[2018-09-28] MEDS: ALLOPURINOL 300 MG TABLET PO SCH (09:16)
[2018-09-28] MEDS: traMADol 50 MG TABLET PO SCH ×2 (09:17→22:02)
[2018-09-28] MEDS: PANTOPRAZOLE 40 MG TABLET PO SCH (09:18)
[2018-09-28] MEDS: POLYETHYLENE GLYCOL POWDER 17 GM PACK PO SCH (10:23)
[2018-09-28] MEDS: ROSUVASTATIN 10 MG TABLET PO SCH (22:02)
[2018-09-28] MEDS: TAMSULOSIN 0.4 MG CAPSULE PO SCH (22:02)
[2018-09-28] MEDS: WARFARIN 5 MG TABLET PO SCH (22:03)
[2018-09-29] MEDS: SODIUM CHLORIDE 0.9% 1,000 ML IV SCH ×3 (02:09→16:34)
[2018-09-29] MEDS ORDERED: hydrALAZINE 20 MG/1 ML VIAL IV PRN (07:30)
[2018-09-29 08:17] LABS: INR 1.2; Partial Thromboplastin Time 28.5 SECS (0-40)
[2018-09-29] MEDS ORDERED: PROPOFOL 200 MG/20 ML VIAL IV ONE (10:19)
[2018-09-29] MEDS ORDERED: ePHEDrine 50 MG/ML AMP ONE (10:19)
[2018-09-29] MEDS ORDERED: fentaNYL 100 MCG/2 ML VIAL ONE (10:19)
[2018-09-29] MEDS ORDERED: SEVOFLURANE 1 UNIT/15 MINUTE INH ONE (10:19)
[2018-09-29] MEDS ORDERED: NEOSTIGMINE 10 MG/10 ML VIAL ONE (10:20)
[2018-09-29] MEDS ORDERED: LACTATED RINGERS 1,000 ML IV ONE (10:20)
[2018-09-29] MEDS ORDERED: KETAMINE 500 MG/10 ML VIAL ONE (10:20)
[2018-09-29] MEDS ORDERED: GLYCOPYRROLATE 0.4 MG/2 ML VIAL ONE (10:20)
[2018-09-29] MEDS ORDERED: SODIUM CHLORIDE 0.9% 250 ML IV ONE (10:21)
[2018-09-29] MEDS ORDERED: ONDANSETRON 4 MG/2 ML VIAL ONE (10:21)
[2018-09-29] MEDS ORDERED: PHENYLEPHRINE 10 MG/1 ML VIAL IV ONE (10:21)
[2018-09-29] MEDS: ROSUVASTATIN 10 MG TABLET PO SCH ×2 (12:27→20:05)
[2018-09-29] MEDS: ALLOPURINOL 300 MG TABLET PO SCH (12:27)
[2018-09-29] MEDS: METOPROLOL SUCCINATE XL 25 MG TABLET PO SCH (12:27)
[2018-09-29] MEDS: PANTOPRAZOLE 40 MG TABLET PO SCH (12:28)
[2018-09-29] MEDS: GABAPENTIN 100 MG CAPSULE PO SCH (12:28)
[2018-09-29] MEDS: traMADol 50 MG TABLET PO SCH ×2 (12:28→20:05)
[2018-09-29] MEDS: ASPIRIN EC 81 MG TABLET PO SCH (12:28)
[2018-09-29] MEDS: POLYETHYLENE GLYCOL POWDER 17 GM PACK PO SCH (12:32)
[2018-09-29] MEDS: cefTRIAXone 1,000 MG in SYRINGE 1 EACH IV SCH (12:32)
[2018-09-29] MEDS: WARFARIN 5 MG TABLET PO SCH (17:18)
[2018-09-29] MEDS: TAMSULOSIN 0.4 MG CAPSULE PO SCH (20:05)
[2018-09-29] MEDS: HYDROmorphone 2 MG/1 ML VIAL IV PRN (20:05)
[2018-09-30] MEDS: SODIUM CHLORIDE 0.9% 1,000 ML IV SCH ×3 (02:17→20:51)
[2018-09-30] MEDS: HYDROmorphone 2 MG/1 ML VIAL IV PRN ×2 (02:18→15:32)
[2018-09-30] MEDS: traMADol 50 MG TABLET PO SCH ×2 (08:38→20:52)
[2018-09-30] MEDS: GABAPENTIN 100 MG CAPSULE PO SCH (08:38)
[2018-09-30] MEDS: PANTOPRAZOLE 40 MG TABLET PO SCH (08:38)
[2018-09-30] MEDS: ALLOPURINOL 300 MG TABLET PO SCH (08:38)
[2018-09-30] MEDS: ASPIRIN EC 81 MG TABLET PO SCH (08:38)
[2018-09-30] MEDS: METOPROLOL SUCCINATE XL 25 MG TABLET PO SCH (08:38)
[2018-09-30] MEDS: cefTRIAXone 1,000 MG in SYRINGE 1 EACH IV SCH (08:45)
[2018-09-30] MEDS ORDERED: SIMETHICONE CHEW 125 MG TABLET PO PRN (09:58)
[2018-09-30] MEDS: POLYETHYLENE GLYCOL POWDER 17 GM PACK PO SCH (12:11)
[2018-09-30] MEDS: WARFARIN 5 MG TABLET PO SCH (18:43)
[2018-09-30] MEDS: TAMSULOSIN 0.4 MG CAPSULE PO SCH (20:52)
[2018-09-30] MEDS: ROSUVASTATIN 10 MG TABLET PO SCH (20:52)
[2018-10-01] MEDS: HYDROmorphone 2 MG/1 ML VIAL IV PRN (00:28)
[2018-10-01 05:20] LABS: Basophils % 0.5 % (0.0-0.8); Eosinophils # 0.3 10*3/uL (0.0-0.87); Eosinophils % 5.2 % (0.00-10.9); Immature Granulocytes % 0.3 %; Immature Granulocytes Absolute 0.02 #; Lymphocytes # 0.8 10*3/uL (1.4-4.0); Lymphocytes % 13.5 % (21.2-54.2); Mean Corpuscular HGB Conc 33.3 GM/DL (32-36); Mean Platelet Volume 11.7 FL (9.6-12.0); Monocytes % 12.8 % (1.7-12.7); Neutrophils % 67.7 % (38.7-73.9); Platelet Count 162 T/CUMM (130-400); Red Cell Distribution Width 14.3 % (9.3-17.3); White Blood Count 6.2 T/CUMM (4-12)
[2018-10-01 05:31] LABS: Calcium 8.7 MG/DL (8.5-10.1); Osmolality,Calculated 279.4 MOS/KG (273-304)
[2018-10-01 05:37] LABS: INR 1.1; PT Patient Result 11.9 SECS
[2018-10-01 07:49] VITALS: BP 136/60
[2018-10-01] MEDS: SODIUM CHLORIDE 0.9% 1,000 ML IV SCH (08:18)
[2018-10-01] MEDS: METOPROLOL SUCCINATE XL 25 MG TABLET PO SCH (08:20)
[2018-10-01] MEDS: ASPIRIN EC 81 MG TABLET PO SCH (08:20)
[2018-10-01] MEDS: ALLOPURINOL 300 MG TABLET PO SCH (08:20)
[2018-10-01] MEDS: POLYETHYLENE GLYCOL POWDER 17 GM PACK PO SCH (08:20)
[2018-10-01] MEDS: ROSUVASTATIN 10 MG TABLET PO SCH (08:20)
[2018-10-01] MEDS: traMADol 50 MG TABLET PO SCH (08:20)
[2018-10-01] MEDS: PANTOPRAZOLE 40 MG TABLET PO SCH (08:20)
[2018-10-01] MEDS: GABAPENTIN 100 MG CAPSULE PO SCH (08:21)
[2018-10-01] MEDS: cefTRIAXone 1,000 MG in SYRINGE 1 EACH IV SCH (08:26)
== END 2018-10-01 10:42 | disposition home or self-care (01) | DRG 659 ==
LOC: N.ED 20:56 → N.EDINP 09-25 01:06 → N.TELEN 09-25 02:16
PROVIDERS: ADMIT Family Medicine; ATTEND Family Medicine

== ENCOUNTER 2020-02-09 10:19 | Observation (INO) ==
[2020-02-09 11:35] LABS: Basophils % 0.5 % (0.0-0.8); Eosinophils # 0.2 10*3/uL (0.0-0.87); Eosinophils % 4.3 % (0.00-10.9); Hematocrit 41.4 VOL% (42.0-52.0); Hemoglobin 14.5 GM/DL (14.0-18.0); Immature Granulocytes % 0.5 %; Immature Granulocytes Absolute 0.03 #; Lymphocytes # 0.7 10*3/uL (1.4-4.0); Lymphocytes % 13.1 % (21.2-54.2); Mean Platelet Volume 11.6 FL (9.6-12.0); Monocytes % 14.2 % (1.7-12.7); Neutrophils % 67.4 % (38.7-73.9); Platelet Count 157 T/CUMM (130-400); Red Blood Count 4.18 MC/CUMM (3.8-5.5); Red Cell Distribution Width 13.8 % (9.3-17.3); White Blood Count 5.6 T/CUMM (4-12)
[2020-02-09 11:44] LABS: INR 1.9; PT Patient Result 20.2 SECS (9.8-11.9)
[2020-02-09 11:57] LABS: Albumin 3.5 G/DL (3.4-5.0); Bilirubin,Total 0.8 MG/DL (0.2-1.0); Calcium 9.2 MG/DL (8.5-10.1); Osmolality,Calculated 283.3 MOS/KG (273-304); Total Protein 6.4 G/DL (6.4-8.3)
[2020-02-09] MEDS ORDERED: ACETAMINOPHEN 500 MG TABLET PO STA (11:59)
[2020-02-09] MEDS ORDERED: SODIUM CHLORIDE 0.9% 1,000 ML IV SCH (14:41)
[2020-02-09] MEDS ORDERED: ONDANSETRON 4 MG/2 ML VIAL IV PRN (14:41)
[2020-02-09] MEDS ORDERED: AMOXICILLIN 500 MG CAPSULE PO SCH (16:30)
[2020-02-09] MEDS ORDERED: cefTRIAXone 1,000 MG in SYRINGE 1 EACH IV SCH (18:00)
[2020-02-09] MEDS ORDERED: WARFARIN 5 MG TABLET PO SCH (18:00)
[2020-02-09 18:33] LABS: Bilirubin,Urine Negative (Negative); Blood, Urine Negative (Negative); Glucose,Urine (UA) Negative (Negative); Hyaline Casts,Urine 1 /LPF (0-3); Ketones,Urine Negative (Negative); Mucus,Urine Occasional /LPF (Occasional); Nitrite,Urine Negative (Negative); Protein,Urine Negative; RBC,Urine 1 /HPF (0-4); Urine Appearance CLEAR (Clear); Urine Color Yellow (Yellow); Urine Specific Gravity 1.013 (1.001-1.035); Urine Urobilinogen < 2.0 EU/DL (0.2-1.0); WBC,Urine 1 /HPF (0-6)
[2020-02-09] MEDS: CELECOXIB 100 MG CAPSULE PO SCH (20:35)
[2020-02-09] MEDS: DOCUSATE SODIUM 100 MG CAPSULE PO SCH (20:35)
[2020-02-09] MEDS ORDERED: TAMSULOSIN 0.4 MG CAPSULE PO SCH (21:00)
[2020-02-10 06:28] LABS: PT Patient Result 20.3 SECS (9.8-11.9)
[2020-02-10] MEDS: DOCUSATE SODIUM 100 MG CAPSULE PO SCH (08:52)
[2020-02-10] MEDS: CELECOXIB 100 MG CAPSULE PO SCH (08:56)
[2020-02-10] MEDS ORDERED: PANTOPRAZOLE 40 MG TABLET PO SCH (09:00)
[2020-02-10] MEDS ORDERED: ASPIRIN EC 81 MG TABLET PO SCH (09:00)
[2020-02-10] MEDS ORDERED: GABAPENTIN 100 MG CAPSULE PO SCH (09:00)
[2020-02-10] MEDS ORDERED: allopurinoL 300 MG TABLET PO SCH (09:00)
[2020-02-10] MEDS ORDERED: POLYETHYLENE GLYCOL POWDER 17 GM PACK PO SCH (09:00)
[2020-02-10] MEDS ORDERED: METOPROLOL SUCCINATE XL 25 MG TABLET PO SCH (09:00)
[2020-02-10] MEDS ORDERED: NYSTATIN CREAM 15 GM TUBE TOP SCH (15:00)
[2020-02-10 17:05] VITALS: BP 150/69
[2020-02-10] MEDS ORDERED: WARFARIN 7.5 MG TABLET PO SCH (18:00)
[2020-02-10] MEDS ORDERED: ROSUVASTATIN 10 MG TABLET PO SCH (21:00)
== END 2020-02-10 17:30 | disposition home or self-care (01) ==
LOC: EDUNIT# → EDBD → N.ED 10:19 → N.EDINP 13:07 → INTOOBSV 13:07 → N.5E 14:38
PROVIDERS: ADMIT Family Medicine; ATTEND Family Medicine